=== PATIENT | male | born 1945 ===

== ENCOUNTER → 2019-07-23 | Outpatient (CLI) | payer SELFPAY ==
[2019-07-26 06:09] LABS: HIV-1 RNA BY PCR <20 (.)
== END | disposition home or self-care (01) ==
LOC: LAB 17:36 → LAB SHORT 17:36
PROVIDERS: Internal Medicine Infectious Disease
DX: B20 Human immunodeficiency virus [HIV] disease (principal)
CPT/HCPCS: 87536